=== PATIENT | female | born 1960 | race Caucasian/White ===

== ENCOUNTER → 2016-06-13 | Outpatient (CLI) | payer OTHER ==
--- NOTE | 2016-06-13 16:38 | XR ---
EXAMINATION TYPE: XR Hip Complete RT DATE OF EXAM: 06/13/2016 4:08 PM COMPARISON: NONE HISTORY: Pain Severe narrowing of the joint space along the superior compartment with hypertrophic changes involvin g the acetabulum. Diffuse osteopenia noted. Correlate for femoral acetabular impingement. No evidence of erosive change. No acute fracture. Impression 1. Severe osteoarthritis correlate for femoral acetabular impingement
--- NOTE | 2016-06-13 16:39 | XR ---
EXAM TYPE: LUMBAR SPINE X RAY SERIES COMPARISON: NONE HISTORY: Right lower extremity radiculopathy TECHNIQUE: 4 views are submitted. FINDINGS: Alignment is anatomic. The pedicles are intact. The transverse processes are intact. There is ann re degenerative disc disease at levels L3-S1. Facet arthropathy seen at all levels. There is a slight anterolisthesis of L2 relative to L3. IMPRESSION: 1. Multilevel severe degenerative disc disease with facet arthropathy. 2. Grade 1 anterolisthesis L2 on L3.
== END | disposition home or self-care (01) ==
LOC: RADXRMAIN 15:30
PROVIDERS: ATTEND Pediatrics
DX: M51.17 Intervertebral disc disorders with radiculopathy, lumbosacral region (principal); M46.96 Unspecified inflammatory spondylopathy, lumbar region; M43.16 Spondylolisthesis, lumbar region; M16.11 Unilateral primary osteoarthritis, right hip
CPT/HCPCS: 72110; 73502